=== PATIENT | female | born 1980 | race Caucasian/White ===

== ENCOUNTER 2021-05-07 12:11 | Emergency (ER) | payer OTHER, SELFPAY ==
--- NOTE | ~2021-05-07 | CT_ITS ---
EXAMINATION: CT ABDOMEN AND PELVIS WITHOUT CONTRAST CLINICAL INFORMATION: pelvic pain . COMPARISON: No pertinent prior studies are available for comparison. TECHNIQUE: Multidetector volumetric imaging was performed from the superior aspect of the liver through the pubic symphysis without contrast per renal stone protocol. Sagittal and coronal reformatted images were obtained on the technologist workstation. This CT examination was performed using dose optimization techniques as appropriate, variously including the following: *Automated exposure control *Adjustment of mA and/or kV according to patient size (this includes techniques or standardized protocols for targeted exams where dose is matched to indication/reason for exam; i.e. extremities or head) *Use of iterative reconstruction technique DLP: 519 mGy-cm. FINDINGS: LUNG BASES: The visualized lung bases are unremarkable. LIVER, GALLBLADDER, BILIARY TREE: The non-contrast liver is normal in size, shape, and attenuation. There is subtle low-attenuation cyst in segment 4 the liver abutting the falciform ligament but otherwise no suspicious focal hepatic lesion or biliary ductal dilatation is present. The gallbladder surgically absent. PANCREAS: Unremarkable. SPLEEN: Unremarkable. ADRENAL GLANDS: Unremarkable. KIDNEYS AND URETERS: There are several small punctate intrarenal calculi in the bilateral kidneys right more so than left. No obstructive changes. No hydronephrosis or perinephric stranding. No ureteric calculi seen. Subtle low-attenuation probable cyst in the posterior midpole of the right kidney BLADDER: Unremarkable. GASTROINTESTINAL TRACT: The small and large bowel are unremarkable. The appendix is unremarkable. ABDOMINAL WALL: No significant hernia is appreciated. LYMPHOVASCULAR STRUCTURES: No lymphadenopathy. The aorta is unremarkable.. PELVIC VISCERA: Anteroverted uterus with IUD OSSEUS STRUCTURES: Unremarkable. CT/CT abdomen pelvis wo con IMPRESSION: No acute intra-abdominal process seen. There are nonobstructing tiny intrarenal calculi incidentally noted..
[2021-05-07 13:11] VITALS: BP 107/71; PULSE 72; RESP 18; TEMP 36.8; O2SAT 98; BMI 30.8
[2021-05-07 13:39] LABS: MANUAL DIFF FLAG NO
[2021-05-07 13:42] LABS: Basophils Percent Auto 0.4 % (0-2); Eosinophils Percent Auto 0.2 % (0-4); Hematocrit 38.6 % (37-47); Hemoglobin 13.2 g/dl (12.0-16.0); Imm Gran Abs Auto 0.01 X10*3/uL (0.00-0.03); Imm Gran Pct Auto 0.2 % (0.0-0.4); Lymphocytes Percent Auto 18.4 % (20-40); Mean Corpuscular HGB Conc 34.2 g/dl (31.0-35.0); Mean Corpuscular Hemoglobin 29.2 pg (27.0-33.0); Mean Corpuscular Volume 85.4 fL (80-98); Mean Platelet Volume 9.6 fL (9.4-12.3); Monocytes Absolute Auto 0.4 X10*3/uL (0.1-1.2); Monocytes Percent Auto 8.1 % (2-11); Neutrophils Absolute Auto 3.8 X10*3/uL (2.0-8.3); Neutrophils Percent Auto 72.7 % (45-73); Platelet Count 284 X10*3/uL (160-400); Red Blood Count 4.52 X10*6/uL (4.20-5.50); Red Cell Distribution Width 13.2 % (11.0-16.0); White Blood Count 5.2 X10*3/uL (4.8-10.8)
[2021-05-07 13:56] LABS: Alanine Aminotransferase 20 U/L (0-31); Albumin Level 4.1 g/dL (3.5-5.0); Alkaline Phosphatase 62 U/L (39-117); Anion Gap 12 (12-20); Aspartate Amino Transferase 18 U/L (5-31); Bilirubin Total 0.5 mg/dL (0.0-1.0); Blood Urea Nitrogen 4 mg/dL (9-16); Calcium 8.8 mg/dL (8.4-10.2); Carbon Dioxide 24 mmol/L (22-29); Chloride 111 mmol/L (96-108); Creatinine Clr Calc Pharmacy 124.8; Estimated Glomerular Filt Rate > 60; Glucose Random 98 mg/dL (60-115); Potassium 3.8 mmol/L (3.3-5.1); Sodium 143 mmol/L (135-145); Total Protein 5.9 g/dL (6.5-8.0)
[2021-05-07 14:01] LABS: Appearance Urine HAZY; Color Urine YELLOW; Glucose Urine UA NEG (NEG); Leukocyte Esterase Urine NEG (NEG); Nitrite Urine NEG (NEG); PH 6.5 (5.0-8.0); Specific Gravity - Urine 1.025 (1.005-1.025); UACC Culture Trigger NO; Urine Blood 3+ (NEG); Urine Ketones >=80 MG/DL (NEG); Urine Protein NEG (NEG-TRACE)
[2021-05-07 14:11] LABS: Bacteria Urine 2+ /LPF; Squamous Epithelial Cell Urine 2+ /LPF
[2021-05-07 14:12] LABS: WBC Urine 0-2 /HPF (0-4)
[2021-05-07 14:13] LABS: Mucus Urine 1+ /LPF
[2021-05-07 16:30] VITALS: BP 115/69; PULSE 60; RESP 17; TEMP 36.7; O2SAT 100
--- NOTE | 2021-05-07 16:34 | PC.NURSE ---
patient a&ox3, vss, pt c/o 04/12 lower abd/pevic pain, pt awaiting provider, will continue to monitor.
--- NOTE | 2021-05-07 16:45 | ED.GENADULT ---
HPI - General Adult General Chief complaint: Vaginal Bleeding Stated complaint: abd pain, vaginal bleeding Time Seen by Provider: 05/07/21 16:35 Source: patient Mode of arrival: ambulatory Limitations: no limitations History of Present Illness HPI narrative: 40-year-old female came in for evaluation of vaginal bleed. 40-year-old female who is status post tubal ligation and IUD in 2012, patient did not have menstruation since 2012, started to have vaginal bleed with pelvic pain started today patient was told her IUD was misplaced patient is concerned of IUD complications Patient declined any fever, chills, nausea, vomiting. Patient stated that her vaginal bleeding is light used 1 pad all day today. Related Data Allergies Allergy/AdvReac Type Severity Reaction Status Date / Time No Known Allergies Allergy Verified 05/07/21 13:11 Review of Systems Review of Systems: All other systems are reviewed and are negative Constitutional: Reports as per HPI and Reports no additional constitutional complaints Eyes: Reports as per HPI and Reports no additional eye complaints Reports system reviewed and no additional complaints, except as documented Cardiovascular: Reports as per HPI and Reports no additional cardiovascular complaints Respiratory: Reports as per HPI and Reports no additional respiratory complaints Gastrointestinal: Reports as per HPI and Reports no additional gastrointestinal complaints Genitourinary: Reports no additional female genitourinary complaints Musculoskeletal: Reports no additional musculoskeletal complaints Skin/Breast: Reports system reviewed and no additional complaints, except as docu Psychiatric: Reports no additional psychiatric complaints Endocrine: Reports no additional endocrine complaints Hematologic/Lymphatic: Reports no additional hematologic/lymphatic complaints Allergic/Immunologic: Reports no additional allergic/immunologic complaints Reports system reviewed and no additional complaints, except as documented and Reports Abnormal speech present [facility] Past Medical History Medical History Graves disease Multiple sclerosis Thyroid activity decreased Social History Social History Alcohol intake: never Patient Tobacco Use Status: Current everyday Tobacco user Use of substances other than those prescribed or required for medical reasons: Yes Substance Use Type: Marijuana Substance Use Frequency: Daily Advance Directives: No Advance Directives Information Provided: No Patient : No Physical Exam Vital Signs: Vital Signs: Last Vital Signs Temp 98.2 F 05/07/21 18:00 Pulse 72 05/07/21 18:00 Resp 16 05/07/21 18:00 BP 113/74 05/07/21 18:00 Pulse Ox 97 05/07/21 18:00 Body Mass Index 30.8 Vital signs have been reviewed as appeared to be correct. Blood pressure normal. Heart rate normal. Respiration rate normal. Temperature normal. Oxygen saturation normal. Appearance: Alert. Oriented X3. No acute distress. Head: Normal external exam. Normocephalic. Atraumatic. No Thurman signs noted. No raccoon eyes noted Eyes: PERRLA. EOMI. Conjunctiva and sclera normal. Eyelids normal. ENT: TM's Normal. Pharynx normal. Uvula midline. Moist mucous membranes. No trismus noted. No drooling noted. No muffled voice noted. Neck: Normal inspection. Neck supple. FROM. No adenopathy. Thyroid Normal. No meningeal signs. No neck mass noted. CVS: Normal heart rate and rhythm. Heart sound normal. No murmurs noted. Pulses normal throughout. Respiratory: No respiratory distress. Painless inspiration. Breath sounds normal. No wheezes/rales/rhonchi noted. Chest nontender. No accessory muscle usage noted or decreased air movement noted. Abdomen: Soft and nontender. Bowel sounds normal in all 4 quadrants. No distention noted. No organomegaly noted. No visible injury noted. Pelvic exam: Small amount of blood and old, no active bleeding, otherwise inspection, no CMT, no tender adnexa, IUD thread is visible and as per patient request was removed. Back: No CVA tenderness. Full range of motion noted. Skin: Skin warm and dry. Normal skin color. Normal skin turgor. No rashes/lesions/lacerations noted. Extremities: No lower extremity edema. Extremities exhibit normal range of motion. Extremities nontender. Neuro: Oriented X 3. Cranial nerve exam: II-XII are grossly intact No motor deficit. No sensory deficit. Reflexes normal. Course Course Course Narrative: Assessment and plan. 40-year-old female came in for evaluation of pelvic pain, patient has soot secondary to IUD, IUD was removed on the physical exam today, repeat abdominal exam showed no tenderness or rebound or guarding. Patient's pain improved with ibuprofen, patient never had a history of STD, testing for STD were sent. CT of the abdomen pelvis showed no acute intra abdominal process. Medical Decision Making Lab Data Lab results reviewed: Yes I reviewed the patient's lab results. Result diagrams: 05/07/21 13:33 05/07/21 13:33 Labs: Lab Results 05/07/21 05/07/21 05/07/21 Range/Units 13:31 13:31 13:33 WBC 5.2 (4.8-10.8) X10*3/uL RBC 4.52 (4.20-5.50) X10*6/uL Hgb 13.2 (12.0-16.0) g/dl Hct 38.6 (37-47) % MCV 85.4 (80-98) fL MCH 29.2 (27.0-33.0) pg MCHC 34.2 (31.0-35.0) g/dl RDW 13.2 (11.0-16.0) % Plt Count 284 (160-400) X10*3/uL MPV 9.6 (9.4-12.3) fL Immature Gran % (Auto) 0.2 (0.0-0.4) % Neut % (Auto) 72.7 (45-73) % Lymph % (Auto) 18.4 L (20-40) % [place] % (Auto) 8.1 (2-11) % Eos % (Auto) 0.2 (0-4) % Baso % (Auto) 0.4 (0-2) % Lymph # (Auto) 1.0 L (1.2-4.9) X10*3/uL [place] # (Auto) 0.4 (0.1-1.2) X10*3/uL Eos # (Auto) 0.0 (0.0-0.4) X10*3/uL Baso # (Auto) 0.0 (0.0-0.2) X10*3/uL Abs Immat Gran (auto) 0.01 (0.00-0.03) X10*3/uL Absolute Neuts (auto) 3.8 (2.0-8.3) X10*3/uL Absolute Nucleated RBC 0.000 (0.0-0.012) X10*3/uL Nucleated RBC % (auto) 0.0 (0.0-0.2) /100WBC Sodium (135-145) mmol/L Potassium (3.3-5.1) mmol/L Chloride (96-108) mmol/L Carbon Dioxide (22-29) mmol/L Anion Gap (12-20) BUN (9-16) mg/dL Creatinine (0.5-1.4) mg/dL Estim Creat Clear Calc Estimated GFR Random Glucose (60-115) mg/dL Calcium (8.4-10.2) mg/dL Total Bilirubin (0.0-1.0) mg/dL AST (5-31) U/L ALT (0-31) U/L Alkaline Phosphatase (39-117) U/L Total Protein (6.5-8.0) g/dL Albumin (3.5-5.0) g/dL Urine Color YELLOW Urine Appearance HAZY Urine pH 6.5 (5.0-8.0) Ur Specific [place] 1.025 (1.005-1.025) Urine Protein NEG (NEG-TRACE) MG/DL Urine Glucose (UA) NEG (NEG) MG/DL Urine Ketones >=80 (NEG) MG/DL Urine Blood 3+ H (NEG) Urine Nitrite NEG (NEG) Ur Leukocyte Esterase NEG (NEG) Urine RBC 1-4 (0) /HPF Urine WBC 0-2 (0-4) /HPF Ur Squamous Epith Cells 2+ /LPF Urine Bacteria 2+ /LPF Urine Mucus 1+ /LPF Urine Test NEGATIVE (NEGATIVE) 05/07/21 Range/Units 13:33 WBC (4.8-10.8) X10*3/uL RBC (4.20-5.50) X10*6/uL Hgb (12.0-16.0) g/dl Hct (37-47) % MCV (80-98) fL MCH (27.0-33.0) pg MCHC (31.0-35.0) g/dl RDW (11.0-16.0) % Plt Count (160-400) X10*3/uL MPV (9.4-12.3) fL Immature Gran % (Auto) (0.0-0.4) % Neut % (Auto) (45-73) % Lymph % (Auto) (20-40) % [place] % (Auto) (2-11) % Eos % (Auto) (0-4) % Baso % (Auto) (0-2) % Lymph # (Auto) (1.2-4.9) X10*3/uL [place] # (Auto) (0.1-1.2) X10*3/uL Eos # (Auto) (0.0-0.4) X10*3/uL Baso # (Auto) (0.0-0.2) X10*3/uL Abs Immat Gran (auto) (0.00-0.03) X10*3/uL Absolute Neuts (auto) (2.0-8.3) X10*3/uL Absolute Nucleated RBC (0.0-0.012) X10*3/uL Nucleated RBC % (auto) (0.0-0.2) /100WBC Sodium 143 (135-145) mmol/L Potassium 3.8 (3.3-5.1) mmol/L Chloride 111 H (96-108) mmol/L Carbon Dioxide 24 (22-29) mmol/L Anion Gap 12 (12-20) BUN 4 L (9-16) mg/dL Creatinine 0.59 (0.5-1.4) mg/dL Estim Creat Clear Calc 124.8 Estimated GFR > 60 Random Glucose 98 (60-115) mg/dL Calcium 8.8 (8.4-10.2) mg/dL Total Bilirubin 0.5 (0.0-1.0) mg/dL AST 18 (5-31) U/L ALT 20 (0-31) U/L Alkaline Phosphatase 62 (39-117) U/L Total Protein 5.9 L (6.5-8.0) g/dL Albumin 4.1 (3.5-5.0) g/dL Urine Color Urine Appearance Urine pH (5.0-8.0) Ur Specific [place] (1.005-1.025) Urine Protein (NEG-TRACE) MG/DL Urine Glucose (UA) (NEG) MG/DL Urine Ketones (NEG) MG/DL Urine Blood (NEG) Urine Nitrite (NEG) Ur Leukocyte Esterase (NEG) Urine RBC (0) /HPF Urine WBC (0-4) /HPF Ur Squamous Epith Cells /LPF Urine Bacteria /LPF Urine Mucus /LPF Urine Test (NEGATIVE) Imaging Data CT scan - abdomen: Radiologist's impression: No acute intra-abdominal process seen. There are nonobstructing tiny intrarenal calculi incidentally noted.. ? Discharge Plan Discharge Clinical Impression: Pelvic pain, Encounter for IUD removal Patient Disposition: Home, Self-Care Instructions: Pelvic Pain (ED) Referrals: Mickey Oscar MD [Primary Care Provider] - 2 days Cassandra Latham MD [Physician] - 2 days
[2021-05-07 16:47] LABS: UPreg QC Valid YES; Urine Pregnancy NEGATIVE (NEGATIVE)
--- NOTE | 2021-05-07 17:03 | PC.NURSE ---
patient awaiting ct scan
[2021-05-07 18:00] VITALS: BP 113/74; PULSE 72; RESP 16; TEMP 36.8; O2SAT 97
--- NOTE | 2021-05-07 18:01 | PC.NURSE ---
patient c/o 9/10 lower abd pain, provider notified, will continue to monitor.
--- NOTE | 2021-05-07 18:51 | PC.NURSE ---
THIS PCT SET UP AND ASSIST DR CARROLL WITH PATIENT PELVIC EXAM
[2021-05-07] MEDS: Ibuprofen 600 MG TABLET PO (19:02)
[2021-05-08 09:53] LABS: BV Int Neg Control Negative (Negative); BV Int Pos Control Positive (Positive)
[2021-05-08 11:02] LABS: CT PCR NOT DETECTED (Not Detect.); NG PCR NOT DETECTED (Not Detect.)
== END 2021-05-07 19:10 | disposition home or self-care (01) ==
PROVIDERS: Emergency Provider Emergency Medicine; PCP Internal Medicine
DX: R10.9 Unspecified abdominal pain (principal); N93.9 Abnormal uterine and vaginal bleeding, unspecified; F17.200 Nicotine dependence, unspecified, uncomplicated; F12.90 Cannabis use, unspecified, uncomplicated; Z20.2 Contact with and (suspected) exposure to infections with a predominantly sexual mode of transmission; Z30.432 Encounter for removal of intrauterine contraceptive device; Z71.6 Tobacco abuse counseling
CPT/HCPCS: 36415; 58301; 74176; 80053; 81001; 81003; 81025; 85025; 87480; 87491; 87510; 87591; 87660; 99284

== ENCOUNTER 2021-06-07 11:08 | Outpatient (REF) | payer OTHER, SELFPAY ==
[2021-06-08 13:35] LABS: CT PCR NOT DETECTED (Not Detect.); NG PCR NOT DETECTED (Not Detect.)
[2021-06-09 10:51] LABS: BV Int Neg Control Negative (Negative); BV Int Pos Control Positive (Positive)
[2021-06-13 06:41] LABS: HPV mRNA E6/E7 rflx Not Detected (Not Detected)
== END 2021-06-07 11:09 | disposition home or self-care (01) ==
LOC: HO.LAB 11:08
PROVIDERS: PCP Internal Medicine; Visit Provider Advanced Practice Midwife
DX: Z01.419 Encounter for gynecological examination (general) (routine) without abnormal findings (principal); G35 Multiple sclerosis; Z20.2 Contact with and (suspected) exposure to infections with a predominantly sexual mode of transmission
CPT/HCPCS: 87480; 87491; 87510; 87591; 87624; 87660; 88142

== ENCOUNTER 2021-09-05 08:31 | Outpatient (REF) | payer OTHER, SELFPAY ==
[2021-09-05 09:48] LABS: Hematocrit 39.6 % (37.0-47.0); Hemoglobin 13.1 g/dl (12.0-16.0); Mean Corpuscular HGB Conc 33.1 g/dl (31.0-35.0); Mean Corpuscular Hemoglobin 30.8 pg (27.0-33.0); Mean Platelet Volume 9.3 fL (9.4-12.3); Platelet Count 299 X10*3/uL (160-400); Red Blood Count 4.26 X10*6/uL (4.20-5.50); Red Cell Distribution Width 13.8 % (11.0-16.0); White Blood Count 6.4 X10*3/uL (4.8-10.8)
[2021-09-05 10:36] LABS: HCG Quantitative < 2 mIU/mL; TSH reflex Free T4 0.34 uIU/mL (0.32-4.0)
== END 2021-09-05 08:32 | disposition home or self-care (01) ==
LOC: HO.LAB 08:31
PROVIDERS: PCP Internal Medicine; Visit Provider Obstetrics & Gynecology
DX: N93.9 Abnormal uterine and vaginal bleeding, unspecified (principal)
CPT/HCPCS: 36415; 84443; 84702; 85027; 99212

== ENCOUNTER 2021-09-25 08:52 | Outpatient (REF) | payer OTHER, SELFPAY ==
[2021-09-25 15:35] LABS: CT PCR NOT DETECTED (Not Detect.); NG PCR NOT DETECTED (Not Detect.)
== END 2021-09-25 08:53 | disposition home or self-care (01) ==
LOC: HO.LAB 08:52
PROVIDERS: PCP Internal Medicine; Visit Provider Obstetrics & Gynecology
DX: N93.9 Abnormal uterine and vaginal bleeding, unspecified (principal)
CPT/HCPCS: 58100; 87491; 87591; 88305; 99212

== ENCOUNTER → 2021-10-14 11:35 | Outpatient (BNVA) | payer OTHER, SELFPAY | PROVIDERS: Visit Provider Obstetrics & Gynecology | DX: N93.9 Abnormal uterine and vaginal bleeding, unspecified (principal) | CPT/HCPCS: Q3014 ==

== ENCOUNTER 2021-10-30 11:05 | Outpatient (REF) | payer OTHER, SELFPAY ==
--- NOTE | ~2021-10-30 | US_ITS ---
EXAMINATION: US PELVIS CLINICAL INFORMATION: Abnormal uterine and vaginal bleeding. IUD removed 05/2021. COMPARISON: None TECHNIQUE: Ultrasound of the pelvis is performed using both transabdominal and transvaginal transducers along with Doppler. Transvaginal imaging is performed due to inadequate visualization transabdominally. FINDINGS: UTERUS: The uterus is anteverted, anteflexed and measures 7.8 cm in length, 3.6 cm in AP and 4.2 cm in transverse dimension. The double wall endometrial thickness is 0.3 cm. The uterus is smooth in contour and has normal myometrial echogenicity. No visible fibroid. There are small nabothian cysts seen in the cervix. ADNEXA: Both ovaries are visualized. There is normal color flow to the adnexa. There is no ovarian torsion. There is no pelvic ascites or fluid collection. Right Ovary: Measures 2.4 x 1.5 x 1.8 cm and volume 4.0 mL. The ovary appears unremarkable. Left Ovary: Measures 2.4 x 1.5 x 1.8 cm and volume 3.4 mL. The ovary appears unremarkable. There is no free fluid in the cul-de-sac. There are prominent/dilated pelvic vessels in both adnexa. US/US pelvic and transvaginal IMPRESSION: Unremarkable uterus. Unremarkable bilateral ovaries. Mild prominent/dilated pelvic vessels in bilateral adnexa.
== END 2021-10-30 11:06 | disposition home or self-care (01) ==
LOC: HO.US 11:05
PROVIDERS: Visit Provider Obstetrics & Gynecology
DX: N93.9 Abnormal uterine and vaginal bleeding, unspecified (principal)
CPT/HCPCS: 76830; 76856

== ENCOUNTER 2022-04-02 14:09 | Outpatient (REF) | payer OTHER, SELFPAY ==
[2022-04-02 15:20] LABS: HCG Quantitative < 2 mIU/mL
== END 2022-04-02 14:10 | disposition home or self-care (01) ==
LOC: HO.LAB 14:09
PROVIDERS: PCP Internal Medicine; Visit Provider Obstetrics & Gynecology
DX: N91.2 Amenorrhea, unspecified (principal)
CPT/HCPCS: 36415; 84702

== ENCOUNTER 2022-04-08 10:50 | Outpatient (REF) | payer OTHER, SELFPAY ==
[2022-04-08 18:15] LABS: CT PCR NOT DETECTED (Not Detect.); NG PCR NOT DETECTED (Not Detect.)
== END 2022-04-08 10:51 | disposition home or self-care (01) ==
LOC: HO.LNP 10:50
PROVIDERS: PCP Internal Medicine; Visit Provider Obstetrics & Gynecology
DX: N93.9 Abnormal uterine and vaginal bleeding, unspecified (principal); Z32.02 Encounter for pregnancy test, result negative; Z30.430 Encounter for insertion of intrauterine contraceptive device
CPT/HCPCS: 58300; 81025; 87491; 87591; 99212; J7298

== ENCOUNTER 2022-04-29 08:36 | Outpatient (REF) | payer OTHER, SELFPAY ==
[2022-04-29 18:41] LABS: CT PCR NOT DETECTED (Not Detect.); NG PCR NOT DETECTED (Not Detect.)
[2022-04-30 10:13] LABS: BV Int Neg Control Negative (Negative); BV Int Pos Control Positive (Positive)
== END 2022-04-29 08:37 | disposition home or self-care (01) ==
LOC: HO.LNP 08:36
PROVIDERS: Visit Provider Obstetrics & Gynecology
DX: Z30.431 Encounter for routine checking of intrauterine contraceptive device (principal); N89.8 Other specified noninflammatory disorders of vagina; B37.3 Candidiasis of vulva and vagina
CPT/HCPCS: 87480; 87491; 87510; 87591; 87660; 99212

== ENCOUNTER 2022-04-30 13:36 | Outpatient (REF) | payer OTHER, SELFPAY ==
[2022-04-30 15:28] LABS: Syphilis Screen Nonreactive (Nonreactive)
[2022-05-01 07:16] LABS: HBsAGNum1 0.31 S/CO (0.00-0.99); HIV AB/AG Nonreactive (Nonreactive); HIV Num 1 0.07 S/CO (0.00-0.99); Hepatitis B Surface Antigen Negative (Negative); ~HepC Num1 0.03 S/CO (0.00-0.79); ~Hepatitis C Antibody Nonreactive (Nonreactive)
== END 2022-04-30 13:37 | disposition home or self-care (01) ==
LOC: HO.LAB 13:36
PROVIDERS: PCP Internal Medicine; Visit Provider Obstetrics & Gynecology
DX: Z11.4 Encounter for screening for human immunodeficiency virus [HIV] (principal); N76.0 Acute vaginitis; B96.89 Other specified bacterial agents as the cause of diseases classified elsewhere
CPT/HCPCS: 36415; 86780; 86803; 87340; 87389

== ENCOUNTER 2022-09-03 09:45 | Outpatient (REF) | payer OTHER, SELFPAY ==
[2022-09-03 16:43] LABS: CT PCR NOT DETECTED (Not Detect.); NG PCR NOT DETECTED (Not Detect.)
[2022-09-04 12:42] LABS: BV Int Neg Control Negative (Negative); BV Int Pos Control Positive (Positive)
[2022-09-06 07:33] LABS: HPV mRNA E6/E7 rflx Not Detected (Not Detected)
== END 2022-09-03 09:46 | disposition home or self-care (01) ==
LOC: HO.LNP 09:45
PROVIDERS: PCP Internal Medicine; Visit Provider Obstetrics & Gynecology
DX: Z01.419 Encounter for gynecological examination (general) (routine) without abnormal findings (principal); N76.0 Acute vaginitis; Z20.2 Contact with and (suspected) exposure to infections with a predominantly sexual mode of transmission
CPT/HCPCS: 0353U; 87480; 87510; 87624; 87660; 88142

== ENCOUNTER 2022-10-23 11:39 | Outpatient (REF) | payer OTHER, SELFPAY ==
--- NOTE | ~2022-10-23 | MM_ITS ---
EXAMINATION: MM SCREENING DIGITAL BREAST TOMOSYNTHESIS, BILATERAL CLINICAL INFORMATION: Screening. Asymptomatic. The lifetime risk of breast cancer based on the Tyrer-Cuzick Model is 7.8%. COMPARISON: Mammography: February 19, 2022 and studies dating back to September 30, 2019 TECHNIQUE: Digital breast tomosynthesis is performed in both the craniocaudal and mediolateral oblique views along with computer-aided detection (CAD). Synthesized 2D images are generated from the tomosynthesis. FINDINGS: The breasts are heterogeneously dense, which may obscure small masses (ACR BI-RADS breast composition Category c). There are no significant masses, abnormal calcifications, or other abnormalities. MM/MM tomosynthesis screening BI IMPRESSION: No significant changes from prior exam. ASSESSMENT: BI-RADS 1: Negative RECOMMENDATION: Routine annual mammography screening. This patient's information was entered into a reminder system with a target due date for their next mammogram.
== END 2022-10-23 11:40 | disposition home or self-care (01) ==
LOC: HO.MAMMO 11:39
PROVIDERS: PCP Internal Medicine; Visit Provider Obstetrics & Gynecology
DX: Z12.31 Encounter for screening mammogram for malignant neoplasm of breast (principal)
CPT/HCPCS: 77063; 77067

== ENCOUNTER 2023-08-12 10:55 | Outpatient (AMB) | payer OTHER, SELFPAY ==
[2023-08-12 10:56] VITALS: BP 110/70; BMI 25.2
--- NOTE | 2023-08-12 10:56 | MHC.OFFVIS ---
Intake Vital Signs 08/12/23 10:56 Height 5 ft 3 in Weight 142 lb BMI 25.2 BP 110/70 Intake Visit Reasons: IUD Check Retail Loss Prevention Investigator Required: No Information Interpreted: non-clinical & clinical Pattern Chart Writer: Pattern Chart Writer Present (Norma HANNON) Accompanied by: Self / Same As Patient Allergies No Known Allergies Allergy (Verified 08/12/23 11:04) Is last menstrual period known: No (mirena) HPI HPI Comments History of Present Illness Details The patient is presenting for IUD check after 1 st period following IUD insertion. The patient has no complaints. [facility] Medical History Bacterial vaginosis LGSIL on Pap smear of cervix Carpal tunnel syndrome GERD (gastroesophageal reflux disease) Cervical cancer screening Asthma delivery delivered Multiple sclerosis Graves disease Thyroid activity decreased Surgical History Tubal ligation status Hx of section Family History Mother Diabetes Arthritis Fibromyalgia Father HTN (hypertension) Asthma Sister Multiple sclerosis Social History Housing: House Alcohol intake: never Patient Tobacco Use Status: Current everyday Tobacco user Cigarettes Per Day: 10 Years Smoked: 7 Substance Use Type: Marijuana Current occupational status: disabled Sexual orientation: Straight/Heterosexual Gender identity: Female Female Reproductive History Menstrual Age of Menarche: 13 control method: progestin IUCD Review of Systems Const All systems reviewed & are unremarkable except as noted in HPI and below Physical Exam Vital Signs: Last Vital Signs BP 110/70 08/12/23 10:56 BMI result Body Mass Index 25.2 General: Yes no CVA tenderness External Female Exam: normal external appearance and normal appearance of the urethra Speculum Exam - Vagina: normal appearance of the vagina, normal palpation, no lesions and no masses Speculum Exam - Cervix: normal appearance of the cervix, normal palpation, no lesions, no masses, nontender and Other cervical findings present (IUD string in place) Bimanual exam- vagina & uterus: normal bimanual exam, normal palpation, uterine size normal, normal palpation, uterine shape normal, No Cervical tenderness present and non-tender Bimanual Exam- Adnexa, other: normal adnexae Back/Spine/Pelvis Back: no CVA tenderness Results AMB Test Urine AMB Test Urine Negative Last Edit by Norma Limon CMA on 08/12/23 11:08 Results Reviewed Results Reviewed: Laboratory Last Values Tst Clinic Negative 08/12/23 11:08 Assessment & Plan Assessment & Plan (1) IUD check up: Code(s): Z30.431 - Encounter for routine checking of intrauterine contraceptive device Plan: UPT done in the office was negative. Discussed with the patient the finding on physical exam, IUD string in place, the patient was reassured. Instructions given to patient to call in case of temperature above 100.4, severe cramping/pelvic pain, abnormal discharge or abnormal uterine bleeding or if she misses her. Otherwise follow-up at her annual exam appointment. All questions answered, the patient verbalized understanding. Orders: Orders AMB HCG Urine Test Today Z32.02 - Encounter for test, result negative Coding Level of Care Code Est Pt Level 3 (68836) Diagnoses IUD check up Z30.431
== END 2023-08-12 11:44 | disposition home or self-care (01) ==
LOC: HO.HWS 10:55
PROVIDERS: PCP Internal Medicine; Visit Provider Obstetrics & Gynecology
DX: Z30.431 Encounter for routine checking of intrauterine contraceptive device (principal); Z32.02 Encounter for pregnancy test, result negative
CPT/HCPCS: 99213

== ENCOUNTER → 2023-08-12 10:55 | Outpatient (BNVA) | payer OTHER, SELFPAY | PROVIDERS: PCP Internal Medicine; Visit Provider Obstetrics & Gynecology | DX: Z30.431 Encounter for routine checking of intrauterine contraceptive device (principal) | CPT/HCPCS: 81025; 99212 ==

== ENCOUNTER 2023-08-27 13:50 | Outpatient (REF) | payer OTHER, SELFPAY ==
--- NOTE | ~2023-08-27 | US_ITS ---
EXAMINATION: MM DIAGNOSTIC DIGITAL BREAST TOMOSYNTHESIS, BILATERAL US BREAST LIMITED, BILATERAL MAMMOGRAPHY: CLINICAL INFORMATION: 43-year-old female complaining of bilateral retroareolar and periareolar pain. COMPARISON: Mammography: 10/23/2022, 08/23/2021, 09/30/2019. TECHNIQUE: Digital breast tomosynthesis is performed in both the craniocaudal and mediolateral oblique views along with computer-aided detection (CAD). Synthesized 2D images are generated from the tomosynthesis. FINDINGS: The breasts are heterogeneously dense, which may obscure small masses (ACR BI-RADS breast composition Category c). There are no suspicious masses, suspicious grouped calcifications, or areas of architectural distortion in either breast. There is no retroareolar or periareolar suspicious abnormality. The parenchymal pattern is stable from prior exams. There are no skin or axillary abnormalities. There is no mammographic abnormality to correlate with the retroareolar breast pain bilaterally. ULTRASOUND: CLINICAL INFORMATION: As above. COMPARISON: 02/19/2022 bilateral ultrasound TECHNIQUE: Targeted sonographic evaluation was performed using a high frequency linear transducer. Examination focused on both breasts in the retroareolar regions. Selected archived documentation. FINDINGS: RIGHT BREAST: There is heterogeneously dense retroareolar tissue. No suspicious mass is seen. There is no pathologic acoustic shadowing. There is no cystic abnormality. No ultrasonographic correlate to the region of retroareolar breast pain. LEFT BREAST: There is heterogeneously dense retroareolar tissue. No suspicious mass is seen. There is no pathologic acoustic shadowing. There is no cystic abnormality. No ultrasonographic correlate to the region of retroareolar breast pain. US/US breast BI limited mamm only IMPRESSION: There are no significant changes from prior study. No findings suspicious for malignancy. No imaging abnormality in the bilateral retroareolar regions to explain bilateral retroareolar breast pain. Recommend clinical management. Otherwise, recommend resuming routine annual screening mammography. OVERALL ASSESSMENT: Mammography: BI-RADS 1 - Negative Ultrasound: BI-RADS 1 - Negative RECOMMENDATION: 1. Patient should be managed based on the clinical impression. 2. Otherwise, routine annual screening mammography. Results were provided to the patient at time of visit by the technologist. This patient's information was entered into a reminder system with a target due date for their next mammogram.
== END 2023-08-27 13:51 | disposition home or self-care (01) ==
LOC: HO.MAMMO 13:50
PROVIDERS: PCP Internal Medicine; Visit Provider Physician Assistant Medical
DX: N64.4 Mastodynia (principal)
CPT/HCPCS: 76642; 77062; 77066

== ENCOUNTER → 2023-08-27 14:00 | Outpatient (BNV) | payer OTHER, SELFPAY | PROVIDERS: PCP Internal Medicine; Visit Provider Radiology Diagnostic Radiology | DX: N64.4 Mastodynia (principal) | CPT/HCPCS: 76642; 77062; 77066 ==

== ENCOUNTER 2023-09-09 09:45 | Outpatient (REF) | payer OTHER, SELFPAY ==
[2023-09-14 20:09] LABS: HPV mRNA E6/E7 rflx Not Detected (Not Detected)
== END 2023-09-09 09:46 | disposition home or self-care (01) ==
LOC: HO.LNP 09:45
PROVIDERS: PCP Internal Medicine; Visit Provider Obstetrics & Gynecology
DX: Z01.419 Encounter for gynecological examination (general) (routine) without abnormal findings (principal); Z11.51 Encounter for screening for human papillomavirus (HPV)
CPT/HCPCS: 87624; 88142

== ENCOUNTER 2023-09-09 09:45 | Outpatient (AMB) | payer OTHER, SELFPAY ==
--- NOTE | 2023-09-09 10:15 | MHC.OFFVIS ---
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 No complaints. Last Pap/HPV was ascus/HPV negative Last Mammogram was BI-RADS 1 in 08/26 [facility] Medical History Bacterial vaginosis LGSIL on Pap smear of cervix Carpal tunnel syndrome GERD (gastroesophageal reflux disease) Cervical cancer screening Asthma delivery delivered Multiple sclerosis Graves disease Thyroid activity decreased Surgical History Tubal ligation status Hx of section Family History Mother Diabetes Arthritis Fibromyalgia Father HTN (hypertension) Asthma Sister Multiple sclerosis Social History (Updated 09/09/23 @ 10:29 by Norma Limon CMA) Housing: House Alcohol intake: never Patient Tobacco Use Status: Former Tobacco user Tobacco use type: Cigarette Cigarettes Per Day: 10 Years Smoked: 7 e-Cigarette/Vaping Use: Currently Using Frequency of e-Cigarette/Vaping Use: vaoing x 4 times per day Substance Use Type: Marijuana Current occupational status: disabled Sexually active: Yes Sexual orientation: Straight/Heterosexual Gender identity: Female Female Reproductive History Menstrual Age of Menarche: 13 Date of last pap smear: 09/03/22 Date of Mammogram: 08/27/22 Review of Systems Const All systems reviewed & are unremarkable except as noted in HPI and below Card Reports as per HPI Resp Reports as per HPI GI Reports as per HPI and Reports no additional complaints Reports as per HPI Physical Exam Vital Signs: BMI result Body Mass Index 24.8 Const General: cooperative, healthy appearing and comfortable Chest Chest palpation & inspection: normal inspection of the chest and normal palpation of entire chest wall Breast/axilla inspection: normal inspection of the breasts and normal inspection of the axillae Breast/axilla palpation: normal palpation of the breasts, normal palpation of the axillae and no axillary lymphadenopathy Resp Effort & Inspection: normal respiratory effort Auscultation: clear to auscultation bilaterally Percussion: percussion normal Cardio Palpation: normal PMI Rate: regular rate Rhythm: regular rhythm Heart sounds: no murmurs and no rubs Peripheral pulses: Peripheral pulses 2+ throughout GI Inspection: Yes normal to inspection Palpation (GI): Soft to palpation, nontender, no guarding, not rigid and No hepatosplenomegaly present Percussion: Yes normal to percussion Auscultation: normal bowel sounds Rectal Exam - Female: deferred General: Yes bladder normal to palpation External Female Exam: No lesion Speculum Exam - Vagina: normal appearance of the vagina, normal palpation, normal vaginal discharge and not erythematous Speculum Exam - Cervix: normal appearance of the cervix and normal palpation Bimanual exam- vagina & uterus: normal bimanual exam, normal palpation, uterine size normal, bladder normal to palpation, consistency normal and normal palpation Bimanual Exam- Adnexa, other: normal adnexae, no masses and no tenderness Assessment & Plan Assessment & Plan (1) Well woman exam: Comment: Ascus/HPV negative in 09/25 Code(s): Z01.419 - Encounter for gynecological examination (general) (routine) without abnormal findings Plan: Cotesting done. Counseled the patient about the recommended dietary allowance of 1000 mg of Calcium & 600 IU of vitamin D. The patient was instructed to perform monthly self-breast exams and to schedule an annual exam in a year; All questions answered and the patient verbalized understanding. Instructed the patient to schedule annual exam in a year Coding Level of Care Code Est Pt Prev Care 40-64y(65954) Diagnoses Well woman exam Z01.419
[2023-09-09 10:24] VITALS: BP 114/62; BMI 24.8
== END 2023-09-09 10:59 | disposition home or self-care (01) ==
LOC: HO.HWS 09:45
PROVIDERS: PCP Internal Medicine; Visit Provider Obstetrics & Gynecology
DX: Z01.419 Encounter for gynecological examination (general) (routine) without abnormal findings (principal)
CPT/HCPCS: 99396

== ENCOUNTER 2024-11-16 14:39 | Outpatient (REF) | payer OTHER, SELFPAY ==
--- OUTSIDE RECORDS SUMMARY | 2024-11-16 18:05 | XMS_ITS | Clinical Summary ---
Author Organization 175 [facility] Address [address] [place] [address] Phone Care Team Providers Care Recycling Crew Supervisor Name Role Phone Mickey Oscar MD Primary Care Provider [phone] Allergies Active Allergy Reactions Criticality Noted Date [...] ulcers 09/29/2023 Pancreas divisum 09/29/2023 Multiple sclerosis ([facility] V24, [facility] V28) Fibromyalgia 01/25/2021 Graves disease 01/25/2021 [...] Description 09/30/2024 8:00 AM EST Office Visit [facility] - [address] [place] [address] Jumana Peterson, NOEL MS (multiple sclerosis) ([facility] V24, [facility] V28) (Primary Dx) 09/30/2024 7:52 AM EST - 09/30/2024 11:59 PM EST Hospital Encounter [facility] Outpatient Rehabilititation [facility] [address] [facility] [address] [place] [address] Multiple sclerosis ([facility] V24, [facility] V28) (Primary Dx); Vitamin D deficiency Discharge Disposition: Home or Self Care 08/25/2024 Telephone [facility] Outpatient [facility] [address] [facility] [address] [place] [address] Jumana Peterson PA OCREVUS AUTH RQST; AUTH RECVD [...] older (Afluria) 3 years and older 05/05/2015 Mtime SARS-CoV-2 COVID-19, mRNA, LNP-S, preservative free 02/11/2021,01/21/2021 Medical History Medical History Date Comments MS (multiple sclerosis) ([facility] V24, [facility] V28) DX:MS (multiple sclerosis) ( [facility]) Adhd DX:ADHD Fibromyalgia DX:Fibromyalgia Overactive thyroid [...] Info) Description 03/30/2025 8:00 AM EDT Appointment [facility] Outpatient Rehabilititation [address] [place] [address] Health Maintenance Due Date Last [...] Routine 09/30/2024 8:18 AM EST Multiple sclerosis ([facility] V24, [facility] V28) CBC AND DIFFERENTIAL Routine 09/30/2024 8:18 AM EST Multiple sclerosis ([facility] V24, [facility] V28) HEPATITIS C SCREENING Routine 06/01/2015 from Last 3 Months or Most Recently Relevant to Health Maintenance Results * (ABNORMAL) CBC auto differential (09/30/2024 8:18 AM EST) WBC 7.2 4.8 - 10.8 K/mcL LAB HEMETOLOGY METHOD 09/30/2024 9:06 AM [facility] RBC 4.30 3.80 - 4.80 M/mcL LAB HEMETOLOGY METHOD 09/30/2024 9:06 AM [facility] Hemoglobin 13.4 11.5 - 16.0 g/dL LAB HEMETOLOGY METHOD 09/30/2024 9:06 AM [facility] Hematocrit 39.2 35.0 - 47.0 % LAB HEMETOLOGY METHOD 09/30/2024 9:06 AM [facility] MCV 91.6 79.0 - 98.0 FL LAB HEMETOLOGY METHOD 09/30/2024 9:06 AM [facility] MCH 31.3 27.0 - 32.0 pcg LAB HEMETOLOGY METHOD 09/30/2024 9:06 AM [facility] MCHC 34.2 32.0 - 37.0 g/dL LAB HEMETOLOGY METHOD 09/30/2024 9:06 AM [facility] RDW 14.6 11.0 - 15.0 % LAB HEMETOLOGY METHOD 09/30/2024 9:06 AM [facility] Platelets 308 130 - 400 K/mcL LAB HEMETOLOGY METHOD 09/30/2024 9:06 AM [facility] MPV 8.9 7.0 - 11.0 FL LAB HEMETOLOGY METHOD 09/30/2024 9:06 AM [facility] NRBC 0.0 <1.0 % LAB HEMETOLOGY METHOD 09/30/2024 9:06 AM [facility] NRBC Absolute 0.00 <0.10 K/mcL LAB HEMETOLOGY METHOD 09/30/2024 9:06 AM [facility] Neutrophils Relative 73.4 % LAB HEMETOLOGY METHOD 09/30/2024 9:06 AM [facility] Lymphocytes Relative 15.5 % LAB HEMETOLOGY METHOD 09/30/2024 9:06 AM [facility] Monocytes Relative 7.7 % LAB HEMETOLOGY METHOD 09/30/2024 9:06 AM [facility] Eosinophils Relative 2.2 % LAB HEMETOLOGY METHOD 09/30/2024 9:06 AM [facility] Basophils Relative 0.6 % LAB HEMETOLOGY METHOD 09/30/2024 9:06 AM [facility] Immature Granulocytes Relative 0.6 % LAB HEMETOLOGY METHOD 09/30/2024 9:06 AM [facility] Neutrophils Absolute 5.31 1.50 - 7.00 K/mcL LAB HEMETOLOGY METHOD 09/30/2024 9:06 AM EST [facility] Lymphocytes Absolute 1.12 1.00 - 5.00 K/mcL LAB HEMETOLOGY METHOD 09/30/2024 9:06 AM EST [facility] Monocytes Absolute 0.56 0.20 - 1.00 K/mcL LAB HEMETOLOGY METHOD 09/30/2024 9:06 AM EST [facility] Eosinophils Absolute 0.16 0.00 - 0.50 K/mcL LAB HEMETOLOGY METHOD 09/30/2024 9:06 AM EST [facility] Basophils Absolute 0.04 0.00 - 0.20 K/mcL LAB HEMETOLOGY METHOD 09/30/2024 9:06 AM [facility] Immature Granulocytes Absolute 0.04(H) 0.00 - 0.03 K/mcL LAB HEMETOLOGY METHOD 09/30/2024 9:06 AM EST [facility] Blood Venous blood specimen / Unknown Venipuncture / Unknown 09/30/2024 8:18 AM EST 09/30/2024 8:19 AM EST Jumana COHEN LAB BLOOD ORDERABLES Final R esult [facility] [address] [place] [address], * Hepatitis C Screening (06/01/2015) Hepatitis C Screening Abstracted us Historical Provider HEALTH MAINTENANCE Final Result from Last 3 Months or Most Recently Relevant to Health Maintenance Insurance [facility] MEDICAID Advance Directives Documents on File Type Date Recorded Patient Beamer Helper Expl anation Health Care Decision (hx) 05/04/2015 [...] (hx) 05/04/2015 AD [place] DIRECTIVE Care Teams Recycling Crew Supervisor Relationship Specialty Start Date End Date Mickey Oscar MD [address] [place] [address] [address] [place], [place] PCP - General 12/25/22
--- OUTSIDE RECORDS SUMMARY | 2024-11-16 18:05 | XMS_ITS | Continuity of Care Document ---
Author Organization [facility] Address [address] [place] [phone] Phone Care Team Providers Care Senior Physical Therapist Name Role Phone Starla Garay M.D., Jennie [...] Mod-hi 60 [facility], [address] [place] [address] [employer] [place], [id number], tel:[phone] [facility] Astigmatism NosPain In Or Around Eye Oct-3 1-200 8 Starla Hill. [address] [place] [address], [id number], [place]. tel:[phone] Specialist : Santy Rausch, [address], [place], [address]. tel:[phone] erring Provider: [facility], [address], [place], [address] . tel:[phone] Family History Family Member Type Diagnosis Age At Onset Mother Problem (finding) diabetes melli tus in first degree relative Father Problem (finding) glaucoma Father Problem (finding) cataract Father Problem (finding) HBP Father Problem (finding) diabetes melli tus in first degree relative Payers Payer name Insurance type Covered green party ID Authoriza tion(s) [facility]ly [facility] [id number] Social History Type Description Quantity Date Captured [...]
--- OUTSIDE RECORDS SUMMARY | 2024-11-16 18:05 | XMS_ITS | Clinical Summary ---
Author Organization [facility] Address [address] [place] [address] Care Team Providers Care Brim Setter Name Role Phone Mickey Oscar MD Primary Care Provider Allergies Active Allergy Reactions Criticality Noted Date [...] age to complete this topic Care Teams Brim Setter Relationship Specialty Start Date End Date Mickey Oscar MD [address] [place] [address] [address] [place] [address] PCP - General Geriatric Medicine 12/25/22
== END 2024-11-16 14:40 | disposition home or self-care (01) ==
LOC: HO.LAB 14:39
PROVIDERS: PCP Internal Medicine; Visit Provider Obstetrics & Gynecology
DX: Z13.89 Encounter for screening for other disorder (principal)
CPT/HCPCS: 99396; 99459

== ENCOUNTER 2024-11-16 14:39 | Outpatient (AMB) | payer OTHER, SELFPAY ==
--- NOTE | 2024-11-16 14:47 | A.OFFVIS_ITS ---
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 No complaints. Last Pap/HPV was in 09/26 was negative Last Mammogram was in 08/26 was BI-RADS 1, screening mammogram is scheduled [facility] tomorrow. No previous screening colonoscopy PFSH Medical History Bacterial vaginosis LGSIL on Pap smear of cervix Carpal tunnel syndrome GERD (gastroesophageal reflux disease) Cervical cancer screening Asthma delivery delivered Multiple sclerosis Graves disease Thyroid activity decreased Surgical History Tubal ligation status Hx of section Family History Mother Diabetes Arthritis Fibromyalgia Father HTN (hypertension) Asthma Sister Multiple sclerosis Social History Housing: House Alcohol intake: never Patient Tobacco Use Status: Former Tobacco user Tobacco use type: Cigarette Cigarettes Per Day: 10 Years Smoked: 7 e-Cigarette/Vaping Use: Currently Using Substance Use Type: Marijuana Current occupational status: disabled Sexual orientation: Straight/Heterosexual Gender identity: Female Female Reproductive History Menstrual Age of Menarche: 13 control method: permanent sterilization Date of last pap smear: 09/11/23 Date of Mammogram: 08/27/23 Review of Systems Const All systems reviewed & are unremarkable except as noted in HPI and below Card Reports as per HPI Resp Reports as per HPI GI Reports as per HPI and Reports no additional complaints Reports as per HPI Physical Exam Vital Signs: Last Vital Signs BP 110/70 11/16/24 14:53 BMI result Body Mass Index 32.4 Const General: cooperative, healthy appearing and comfortable Chest Chest palpation & inspection: normal inspection of the chest and normal palpation of entire chest wall Breast/axilla inspection: normal inspection of the breasts and normal inspection of the axillae Breast/axilla palpation: normal palpation of the breasts, normal palpation of the axillae and no axillary lymphadenopathy Resp Effort & Inspection: normal respiratory effort Auscultation: clear to auscultation bilaterally Percussion: percussion normal Cardio Palpation: normal PMI Rate: regular rate Rhythm: regular rhythm Heart sounds: no murmurs and no rubs Peripheral pulses: Peripheral pulses 2+ throughout GI Inspection: Yes normal to inspection Palpation (GI): Soft to palpation, nontender, no guarding, not rigid and No hepatosplenomegaly present Percussion: Yes normal to percussion Auscultation: normal bowel sounds Rectal Exam - Female: deferred General: Yes bladder normal to palpation External Female Exam: No lesion Speculum Exam - Vagina: normal appearance of the vagina, normal palpation, normal vaginal discharge and not erythematous Speculum Exam - Cervix: normal appearance of the cervix, normal palpation and Other cervical findings present (IUD string in place) Bimanual exam- vagina & uterus: normal bimanual exam, normal palpation, uterine size normal, bladder normal to palpation, consistency normal and normal palpation Bimanual Exam- Adnexa, other: normal adnexae, no masses and no tenderness Assessment & Plan Assessment & Plan (1) Well woman exam: Comment: Ascus/HPV negative in 09/25 09/26 co testing negative Code(s): Z01.419 - Encounter for gynecological examination (general) (routine) without abnormal findings Category: Medical Plan: Cotesting not done. Mammogram scheduled at [facility] tomorrow. GI referral placed for screening colonoscopy Counseled the patient about the recommended dietary allowance of 1000 mg of Calcium & 600 IU of vitamin D. The patient was instructed to perform monthly self-breast exams and to schedule an annual exam in a year; All questions answered and the patient verbalized understanding. Instructed the patient to schedule annual exam in a year Orders: Orders MM tomosynthesis screening BI Today Z12.31 - Encounter for screening mammogram for malignant neoplasm of breast Coding Level of Care Code Est Pt Prev Care 40-64y(53088) Diagnoses Well woman exam Z01.419
[2024-11-16 14:53] VITALS: BP 110/70; BMI 32.4
--- OUTSIDE RECORDS SUMMARY | 2024-11-16 17:23 | XMS_ITS | Continuity of Care Document ---
Author Organization [facility] Address [address] [place] [phone] Phone Care Team Providers Care Hog Operator Name Role Phone Starla Garay M.D., Jennie Hill Unavailable Unava ilable Medications Medication Instructions Dosage Effective Dates (start - stop) Status Comments Provigil 200 mg Tab Take One (1) Tablet by Mouth Daily - Active Duragesic 50 mcg/hr Transderm Patch As directed - Active BETASERON 0.3MGVIAL As directed - Active Procedures Procedure Date Offic Cons New/estab Mod-hi 60 08 Advance Directives Directive Yes / No Effective Date File Name Resuscitation Not Answered N/A N/A Life Support Not Answered N/A N/A Intubation Not Answered N/A N/A Antibiotics Not Answered N/A N/A IV Fluid Support Not Answered N/A N/A Tube Feed Not Answered N/A N/A Other Directive N/A N/A WARNING:The information contained in this section is historical and is provided for information only and does not constitute a legal document or any assurance that the information is still accurate. Please verify the information with the zendejas of the legal document before using it for clinical purposes. Encounters Encounter Description Practice Location Reason(s) For Visit Diagnoses Date Provider Providers Copied on Encounter Offic Cons New/estab Mod-hi 60 [facility] NO[facility], [address] [place] [address] [place], [place], [id number], tel:[phone] [facility] Astigmatism NosPain In Or Around Eye Oct-3 1-200 8 Starla Hill. [address] [place] [address], [id number], [place]. tel:[phone] Specialist : Santy Rausch, [address], [place], [address]. tel:[phone] erring Provider: [facility], [address], [place], [address] . tel:[phone] Family History Family Member Type Diagnosis Age At Onset Mother Problem (finding) diabetes melli tus in first degree relative Father Problem (finding) glaucoma Father Problem (finding) cataract Father Problem (finding) HBP Father Problem (finding) diabetes melli tus in first degree relative Payers Payer name Insurance type Covered green party ID Authoriza tion(s) [facility] [id number] Social History Type Description Quantity Date Captured Comments Alcohol Use Details No Caffeine Use Details Tobacco Use Status No Information Smoking Status No Information Sex Female Chief Complaint And Reason For Visit No Information Reason For Referral Reason For Referral No Information History Of Present Illness Encounter Date Complaint History Of Prese nt Illness No Information Functional Status Date Functional Assessmen t No Information Instructions Date Instruction Additional Infor mation - as needed. Related to Astig matism Astigmatism, OU (mil d) - Recommend that pt use polarizied lenses when using sunglasses which will help cut down glare. do not recommend specs at this time. Related to Astigmatism Pain in or around th e eye, OU (Physiological photophobia) - no eye abnormalilty. Recommend that pt use polarizied lenses when using sunglasses which will help cut down glare. do not recommend specs at this time. Related to Pain in or around the eye Assessments Type Assessment Date No Information Patient Care Teams Name Effective Dates (start - stop) Status Members No Information
--- OUTSIDE RECORDS SUMMARY | 2024-11-16 17:23 | XMS_ITS | Clinical Summary ---
Author Organization [facility] Address [address] [place] [address] Phone Care Team Providers Care Plaster Pattern Caster Name Role Phone Mickey Oscar MD Primary Care Provider [phone] Allergies Active Allergy Reactions Criticality Noted Date Comments Fluconazole Rash Low 05/20/2023 Penicillins Hives 08/13/2022 Medications sucralfate (CARAFATE) 100 mg/mL suspension Take 10 mL (1 g total) by mouth. 02/04/20 17 Active pantoprazole (PROTONIX) 40 mg EC tablet Take 1 tablet (40 mg total) by mouth every morning on an empty stomach 10/21/19 23 Active ondansetron (ZOFRAN) 4 mg tablet Take 1 tablet (4 mg total) by mouth every 8 (eight) hours if needed. 07/01/20 21 Active simethicone (MYLICON) 125 mg chewable tablet Chew 1 tablet (125 mg total). 12/24/19 22 Active aluminum-magnesium hydroxide-simethic one (MAALOX) 200-200-20 mg/5 mL suspension Take 15 mL by mouth. 12/24/19 22 Active amphetamine-dextro amphetamine XR (ADDERALL XR) 20 mg 24 hr capsule Take 1 capsule (20 mg total) by mouth. 12/06/19 20 Active dicyclomine (BENTYL) 10 mg capsule Take 1 capsule (10 mg total) by mouth. 12/06/19 20 Active naltrexone, bulk, 100 % powder 0.5 mg by Not Applicable route. 12/06/19 20 Active levothyroxine sodium (TIROSINT) 88 mcg capsule Take by mouth. 12/06/19 20 Active multivit-min/pedro pablo us fumarate (MULTI VITAMIN ORAL) Take by mouth. 12/06/19 Active ascorbic acid (VITAMIN C) 250 mg tablet Take 1 tablet (250 mg total) by mouth. 12/06/19 20 Active fentaNYL (DURAGESIC) 12 mcg/hr Place 12 patches on the skin. 08/18/19 20 Active desvenlafaxine 50 mg tablet extended release 24 hr Take 50 mg by mouth. 09/06/19 20 Active pregabalin (LYRICA) 75 mg capsule Take 1 capsule (100 mg total) by mouth 2 (two) times a day 04/30/20 16 Active zolpidem (AMBIEN) 10 mg tablet Take 1 tablet (10 mg total) by mouth every night at bedtime as needed for sleep. 04/09/20 15 Active cholecalciferol (VITAMIN D-3) 50 mcg (2,000 unit) capsule Take 1 capsule (2,000 Units total) by mouth. 09/06/19 20 Active desvenlafaxine succinate (PRISTIQ) 100 mg 24 hr tablet TAKE 1 TABLET BY MOUTH DAILY AFTER BREAKFAST 08/10/19 24 Active hydroquinone (IMANI) 4 % cream APPLY TO HYPERPIGMENTED AREA ON FACE TWICE A DAY 07/29/20 23 Active rimegepant (NURTEC) 75 mg dispersible tablet Take 1 tablet (75 mg total) by mouth 2 (two) times a day as needed for migraine. 11/03/19 24 Active albuterol 2.5 mg /3 mL (0.083 %) nebulizer solution INHALE CONTENTS OF 1 VIAL VIA NEBULIZER EVERY 4-6 HOURS DIRECTED Active albuterol HFA (PROVENTIL HFA;VENTOLIN HFA) 108 (90 Base) MCG/ACT inhaler Inhale 1 puff into the lungs. - Inhalation Active amphetamine-dextro amphetamine (ADDERALL) 20 mg tablet Take 1 tablet (20 mg total) by mouth daily. - Active clonazePAM (KlonoPIN) 0.5 mg tablet Take 1 tablet (0.5 mg total) by mouth 2 (two) times a day as needed for anxiet Active ocrelizumab (OCREVUS IV) Inject into the vein. Active levothyroxine (SYNTHROID, LEVOTHROID) 100 mcg tablet Take 1 tablet (100 mcg total) by mouth daily. Active erenumab-aooe (Aimovig Autoinjector) 70 mg/mL injection Inject 1 mL (70 mg total) under the skin every 30 (thirty) days. INJECT 1 ML (70 MG TOTAL) UNDER THE SKIN ONCE per month 1 mL 5 07/19/20 24 025 Active OLANZapine (ZyPREXA) 10 mg tablet 1 tablet (10 mg total) at bedtime. Active mirtazapine (REMERON KEVIN-TAB) 30 mg disintegrating tablet Dissolve 1 tablet (30 mg total) on top of the tongue at bedtime. 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 We will continue the same dose of levothyroxine 88 mcg. She would like to repeat thyroid function studies again in 6 months and then maybe we can transition to yearly. I have renew her medications for 90 days with 3 refills I requested thyroid function studies to be done before the next visit. Encounters Date Type Department Care Team Description 09/30/2024 8:00 AM EST Office Visit [place] - [address] [place] [address] Jumana Peterson, NOEL MS (multiple sclerosis) ([facility] V24, [facility] V28) (Primary Dx) 09/30/2024 7:52 AM EST - 09/30/2024 11:59 PM EST Hospital Encounter [facility] Outpatient Rehabilititation [facility] [address] [facility] [address] [place] [address] Multiple sclerosis ([facility] V24, [facility] V28) (Primary Dx); Vitamin D deficiency Discharge Disposition: Home or Self Care 08/25/2024 Telephone [facility] [address] [facility] [address] [place] [address] Juamna Peterson PA OCREVUS AUTH RQST; AUTH RECVD from Last 3 Months Immunizations Name Administration Dates Next Due Influenza Quadravalent, MDCK , 0.5ml, preservative free (Flucelvax) 6mo and older 05/19/2017 Influenza Quadrivalent, 0.5m l, preservative free (Fluarix; FluLaval; Fluzone) ages 6mo and older (Afluria) 3yo and older 04/21/2016 Influenza trivalent, 0.5mL, preservative free (Fluarix; FluLaval; Fluzone) ages 6mo and older (Afluria) 3 years and older 05/05/2015 [employer] SARS-CoV-2 COVID-19, mRNA, LNP-S, preservative free 02/11/2021,01/21/2021 Medical History Medical History Date Comments MS (multiple sclerosis) ([facility] V24, [facility] V28) DX:MS (multiple sclerosis) ( [facility]) Adhd DX:ADHD Fibromyalgia DX:Fibromyalgia Overactive thyroid gland DX:Over active thyroid gland Asthma DX:Asthma Graves disease DX:Graves diseas e Family History Medical History Relation Name Comments Lupus Cousin Asthma Father Diabetes Father Diabetes Father's Sister Dementia Maternal Grandmother Diabetes Mother Migraines Mother Crohn's disease Mother's Sister Diabetes Paternal Grandmother Asthma Sister Migraines Sister Multiple sclerosis Sister Relation Name Status Comments Cousin Father Father's Sister Maternal Grandmother Mother Mother's Sister Paternal Grandmother Sister Social History Tobacco Use Types Packs/Day Years Used Date Smoking Tobacco: Former Cigarettes Q uit: 08/03/2015 Smokeless Tobacco: Never Comments Unknown Sex and Gender Information Value Date Recorded Sex Assigned at Not on file Legal Sex Female 9:24 AM EST Gender Identity Not on file Sexual Orientation Not on file Obstetrics History Last Filed Vital Signs Vital Sign Reading Time Taken Comments Blood Pressure 122/78 09/30/2024 11:11 AM EST Pulse 80 09/30/2024 11:11 AM EST Temperature 36.1 ??C (97 ??F) 09/30/2024 11:11 AM EST Respiratory Rate 16 09/30/2024 11:11 AM EST Oxygen Saturation 96% 09/30/2024 11:11 AM EST Inhaled Oxygen Concentration - - Weight 70.8 kg (156 lb) 08/14/2024 10:14 AM EST Height 160 cm (5' 3 ) 10/28/2023 10:40 AM EDT Body Mass Index 27.63 10/28/2023 10:40 AM EDT Plan of Treatment Upcoming Encounters Date Type Department Care Team (Late st Contact Info) Description 03/30/2025 8:00 AM EDT Appointment [facility] Outpatient Rehabilititation [address] [place] [address] Health Maintenance Due Date Last Done Comments Breast Cancer Screening 1979 DTaP,Tdap,and Td Vaccines (1 - Tdap) 1998 Hepatitis B Vaccines (1 of 3 - 19+ 3-dose series) 1998 Cervical Cancer Screening: Pap Smear 2000 Pneumococcal Vaccine: Pediatrics (0 to 5 Years) and At-Risk Patients (6 to 64 Years) (2 of 2 - PCV) 10/14/2014 10/14/2013 Colorectal Cancer Screening: Colonoscopy 07/10/2022 Depression Screening 07/10/2022 HIV Screening 07/10/2022 Social Influencers of Health Screening 07/10/2022 COVID-19 Vaccine ( season) 2024 02/11/2021, 01/21/2021 Influenza Vaccine (Season Ended) 2025 05/19/2017, 04/21/2016, 05/05/2015, Additional history exists Hepatitis C Screening Completed 06/01/2015, 015 HIB Vaccines Aged Out No longer eligi ble based on patient's age to complete this topic HPV Vaccines Aged Out No longer eligi ble based on patient's age to complete this topic Hepatitis A Vaccines Aged Out No long er eligible based on patient's age to complete this topic IPV Vaccines Aged Out No longer eligi ble based on patient's age to complete this topic MMR Vaccines Aged Out No longer eligi ble based on patient's age to complete this topic Meningococcal ACWY Vaccine Aged Out N o longer eligible based on patient's age to complete this topic Meningococcal B Vaccine Aged Out No l onger eligible based on patient's age to complete this topic RSV Immunization Patients Under 20 months Aged Out No longer eligible based on patient's age to complete this topic Varicella Vaccines Aged Out No longer eligible based on patient's age to complete this topic Procedures Procedure Name Priority Date/Time Associated Diagnosis Comments CBC WITH AUTO DIFFERENTIAL Routine 09/30/2024 8:18 AM EST Multiple sclerosis ([facility] V24, [facility] V28) CBC AND DIFFERENTIAL Routine 09/30/2024 8:18 AM EST Multiple sclerosis ([facility] V24, [facility] V28) HEPATITIS C SCREENING Routine 06/01/2015 from Last 3 Months or Most Recently Relevant to Health Maintenance Results * (ABNORMAL) CBC auto differential (09/30/2024 8:18 AM EST) WBC 7.2 4.8 - 10.8 K/mcL LAB HEMETOLOGY METHOD 09/30/2024 9:06 AM [facility] RBC 4.30 3.80 - 4.80 M/mcL LAB HEMETOLOGY METHOD 09/30/2024 9:06 AM [facility] Hemoglobin 13.4 11.5 - 16.0 g/dL LAB HEMETOLOGY METHOD 09/30/2024 9:06 AM [facility] Hematocrit 39.2 35.0 - 47.0 % LAB HEMETOLOGY METHOD 09/30/2024 9:06 AM [facility] MCV 91.6 79.0 - 98.0 FL LAB HEMETOLOGY METHOD 09/30/2024 9:06 AM [facility] MCH 31.3 27.0 - 32.0 pcg LAB HEMETOLOGY METHOD 09/30/2024 9:06 AM [facility] MCHC 34.2 32.0 - 37.0 g/dL LAB HEMETOLOGY METHOD 09/30/2024 9:06 AM [facility] RDW 14.6 11.0 - 15.0 % LAB HEMETOLOGY METHOD 09/30/2024 9:06 AM [facility] Platelets 308 130 - 400 K/mcL LAB HEMETOLOGY METHOD 09/30/2024 9:06 AM [facility] MPV 8.9 7.0 - 11.0 FL LAB HEMETOLOGY METHOD 09/30/2024 9:06 AM [facility] NRBC 0.0 <1.0 % LAB HEMETOLOGY METHOD 09/30/2024 9:06 AM [facility] NRBC Absolute 0.00 <0.10 K/mcL LAB HEMETOLOGY METHOD 09/30/2024 9:06 AM [facility] Neutrophils Relative 73.4 % LAB HEMETOLOGY METHOD 09/30/2024 9:06 AM [facility] Lymphocytes Relative 15.5 % LAB HEMETOLOGY METHOD 09/30/2024 9:06 AM [facility] Monocytes Relative 7.7 % LAB HEMETOLOGY METHOD 09/30/2024 9:06 AM [facility] Eosinophils Relative 2.2 % LAB HEMETOLOGY METHOD 09/30/2024 9:06 AM [facility] Basophils Relative 0.6 % LAB HEMETOLOGY METHOD 09/30/2024 9:06 AM [facility] Immature Granulocytes Relative 0.6 % LAB HEMETOLOGY METHOD 09/30/2024 9:06 AM [facility] Neutrophils Absolute 5.31 1.50 - 7.00 K/mcL LAB HEMETOLOGY METHOD 09/30/2024 9:06 AM EST [facility] Lymphocytes Absolute 1.12 1.00 - 5.00 K/mcL LAB HEMETOLOGY METHOD 09/30/2024 9:06 AM EST [facility] Monocytes Absolute 0.56 0.20 - 1.00 K/mcL LAB HEMETOLOGY METHOD 09/30/2024 9:06 AM EST [facility] Eosinophils Absolute 0.16 0.00 - 0.50 K/mcL LAB HEMETOLOGY METHOD 09/30/2024 9:06 AM EST [facility] Basophils Absolute 0.04 0.00 - 0.20 K/mcL LAB HEMETOLOGY METHOD 09/30/2024 9:06 AM [facility] Immature Granulocytes Absolute 0.04(H) 0.00 - 0.03 K/mcL LAB HEMETOLOGY METHOD 09/30/2024 9:06 AM EST [facility] Blood Venous blood specimen / Unknown Venipuncture / Unknown 09/30/2024 8:18 AM EST 09/30/2024 8:19 AM EST Jumana COHEN LAB BLOOD ORDERABLES Final R esult [facility] [address] [place] [address], * Hepatitis C Screening (06/01/2015) Hepatitis C Screening Abstracted us Historical Provider HEALTH MAINTENANCE Final Result from Last 3 Months or Most Recently Relevant to Health Maintenance Insurance [facility] MEDICAID Advance Directives Documents on File Type Date Recorded Patient Inspector Precision Assembly Expl anation Health Care Decision (hx) 05/04/2015 AD [place] DIRECTIVE Health Care Decision (hx) 05/04/2015 AD [place]ORD DIRECTIVE Health Care Decision (hx) 05/04/2015 AD [place] DIRECTIVE Health Care Decision (hx) 05/04/2015 AD SAN[place]ORD DIRECTIVE Health Care Decision (hx) 05/04/2015 AD SANFORD DIRECTIVE Health Care Decision (hx) 05/04/2015 AD SANFORD DIRECTIVE Health Care Decision (hx) 05/04/2015 AD SANFORD DIRECTIVE Health Care Decision (hx) 05/04/2015 AD SANFORD DIRECTIVE Health Care Decision (hx) 05/04/2015 AD SANFORD DIRECTIVE Health Care Decision (hx) 05/04/2015 AD SANFORD DIRECTIVE Health Care Decision (hx) 05/04/2015 AD SANFORD DIRECTIVE Health Care Decision (hx) 05/04/2015 AD SAN[place] DIRECTIVE Health Care Decision (hx) 05/04/2015 AD SANFORD DIRECTIVE Health Care Decision (hx) 05/04/2015 AD SANFORD DIRECTIVE Health Care Decision (hx) 05/04/2015 AD [place] DIRECTIVE Health Care Decision (hx) 05/04/2015 AD SANFORD DIRECTIVE Health Care Decision (hx) 05/04/2015 AD SANFORD DIRECTIVE Health Care Decision (hx) 05/04/2015 AD SANFORD DIRECTIVE Health Care Decision (hx) 05/04/2015 AD SANFORD DIRECTIVE Health Care Decision (hx) 05/04/2015 AD SANFORD DIRECTIVE Health Care Decision (hx) 05/04/2015 AD SANFORD DIRECTIVE Care Teams Plaster Pattern Caster Relationship Specialty Start Date End Date Mickey Oscar MD [address] [place] [address] [address] [place], [place] PCP - General 12/25/22
--- OUTSIDE RECORDS SUMMARY | 2024-11-16 17:23 | XMS_ITS ---
Author Name [facility] Organization Unknown History of Medication Use Medication Directions Dispensed Refills Start Date End Date Status Melatonin 5 MG TABS Take 1 tablet by mouth every night at bedtime. 1 active Vitamin D3 50 MCG (2000 UT) capsule TAKE 1 CAPSULE BY MOUTH EVERY DAY 4 active erenumab-aooe (AIMOVIG) 70 MG/ML SOAJ Inject under the skin once. active hydroquinone 4 % cream APPLY TO HYPERPIGMENTED AREA ON FACE TWICE A DAY 3 active ergocalciferol (VITAMIN D2) capsule 42974 units Take 1 capsule (50,000 Units total) by mouth once a week. 3 active amphetamine-dextroam phetamine (ADDERALL) 20 MG tablet Take 1 tablet (20 mg total) by mouth daily. active albuterol 108 (90 Base) MCG/ACT inhaler Inhale 1 puff into the lungs. 5 active Levothyroxine Sodium 88 MCG CAPS Take by mouth. 0 active diphenhydrAMINE (BENADRYL) injection 50 mg 50 mg, Intravenous, Once, On Thu03/30/24 at 0830, For 1 doseGive 30 minutes prior to ocrelizumab. IV push over 2-3 minutes.??See PO diphenhydramine order. Please give PO or IV.??Common Side Effects: Drowsiness, stomach upset, confusion, dry mouth.??Administer undiluted. Maximum rate 25 mg/min. 4 03/30/20 24 completed zolpidem (AMBIEN) 10 MG tablet Take 1 tablet (10 mg total) by mouth every night at bedtime as needed for sleep. active pantoprazole (PROTONIX) 40 MG tablet Take 1 tablet (40 mg total) by mouth every morning on an empty stomach. active ocrelizumab (OCREVUS) 600 mg in sodium chloride (NS) 0.9 % 500 mL IVPB 600 mg, Intravenous, Once, On Thu03/30/24 at 0830, For 1 doseMust use in-line 0.22 micron filter. ??- Infusion Rate for first full 600 mg dose or reaction with previous infusion: Start at 40 mL/hr. Increase by 40 mL/hr every 30 minutes. Maximum rate: 200 mL/hr. Duration: 3.5 hours or longer.??- Infus 4 03/30/20 24 completed Problems Problem Status Onset Date Problem Type Date of Resoluti on Source Graves disease active 2021-01-25 ProblemAct CTT HNEMG Fibromyalgia active 2021-01-25 ProblemAct CTTHN EMG Multiple sclerosis active 2021-01-28 ProblemAct CTTHNEMG
--- OUTSIDE RECORDS SUMMARY | 2024-11-16 17:23 | XMS_ITS | Patient Health Record ---
Author Organization [facility] Address [address] [address] Care Team Providers Care Outbound Sales Executive Name Role Phone Mickey Oscar Primary Care Provider LANRE Styles Unavailable [phone] Allergies Allergen (clinical drug ingredient) Drug/Non Drug Allergy documented on EMR Reaction Allergy Type Onset Date Status teriflunomide Aubagio (uncoded) anaphylaxis Allergy Active Blueberries Blueberries (uncoded) facial Swelling Allergy Active clindamycin Clindamycin (uncoded) rash Allergy Active Iodine (uncoded) anaphylaxis Allergy A ctive Lactose (uncoded) diarrhea Allergy Ac tive Peanut (uncoded) anaphylaxis Allergy A ctive Substance with penicillin structure and antibacterial mechanism of action (substance) Penicillins (uncoded) rash Allergy Active Raspberries (uncoded) facial Swelling Allergy Active Shellfish (FN) Shellfish (uncoded) anaphylaxis Allergy Active strawberry allergenic extract Strawberries (uncoded) facial Swelling Allergy Active Substance with sulfonamide structure and antibacterial mechanism of action (substance) Sulfa (uncoded) diarrhea Allergy Active trazodone Trazadone (uncoded) Hives and dyspnea Allergy Active natalizumab Tysabri (uncoded) hives and dyspnea Allergy Active Reason For Referral No Information Medications Medication SIG (Take, Route, Frequency, Duration) Notes Start Date End Date Status Amitriptyline HCl 10 MG 2 tablets Orally Once a day for 30 days Active busPIRone HCl 30 MG 1 tablet Orally Twice a day for 30 Active Levothyroxine Sodium 100 MCG 1 tablet on an empty stomach in the morning Orally Once a day Active busPIRone HCl 30 1 tablet Orally Twice a day for 30 Active FLUoxetine HCl 10 1 capsule Orally Once a day for 30 Active Protonix 40 MG 1 tablet Orally Once a day Active Vitamin D 2000 UNIT 1 tablet Orally Once a day Active FLUoxetine HCl 10 MG 1 capsule Orally Once a day for 30 Active fentaNYL 25 MCG/HR 1 patch to skin Transdermal Active Naratriptan HCl 1 mg 1 tablet as needed one time Orally Once a day at the first sign of migraine, can repeat x 1 in 4hrs if no relief for 30 Active Ondansetron 4 MG 1 tablet on the tongue and allow to dissolve as needed Orally as needed with naratriptan for migraine up to 2 times per day for 30 days Active KlonoPIN 0.5 MG 1 tablet up to twice a day PRN anxiety Orally up to twice a day for 30 Active traZODone HCl 100 MG TAKE 1 TABLET BY MOUTH EVERY NIGHT AT BEDTIME for 90 Active oxyCODONE HCl 10 MG 1 tablet Orally as needed- o nce to twice per day Active Lyrica 75 MG 1 capsule Orally Twice a day Active KlonoPIN 0.5 1 tablet up to twice a day PRN anxiety Orally up to twice a day for 30 Active Adderall XR 25 MG 1 capsule in the morning- do not fill before 09/08/18 Orally Once a day for 30 days 11/09/2018 Active ProAir HFA 108 (90 Base) MCG/ACT 2 puffs as needed Inhalation every 6 hrs Active Zolpidem Tartrate 10 MG 1 tablet at bedt aaron as needed Orally Once a day as needed for sleep 3x per week approx Active traZODone HCl 100 1 TABLET AT BEDTIME ONCE A DAY ORALLY 30 DAY(S) for 30 Active Amitriptyline HCl 10 2 tablets Orally Once a day for 30 Active Social History Tobacco Use: Social History Observation Description Date Details (start date - stop date) Current Smoker NA - NA Tobacco Use/Smoking Question Answer Notes Are you a current smoker How often do you smoke cigarettes? some days, bu t not every day Section Notes: Alcohol use:none Illicit use:none Occupation: disabled lives in [place] with , and her two children Alcohol use:none Illicit use:none Occupation: disabled lives in [place] with , and her two children Alcohol use:none Illicit use:none Occupation: disabled lives in [place] with , and her two children Alcohol use:none Illicit use:none Occupation: disabled lives in [place] with , and her two children Alcohol use:none Illicit use:none Occupation: disabled lives in [place] with , and her two children Alcohol use:none Illicit use:none Occupation: disabled lives in [place] with , and her two children Problems Problem Type SNOMED Code ICD Code Onset Dates Problem Status W/U Status Risk Notes Problem 103439013 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) Active confirmed Problem 64033019 Generalized anxi ety disorder (F41.1) Active confirmed Problem 25794488 Multiple scleros is (G35) Active confirmed Problem 357437287 Migraine without aura and without status migrainosus, not intractable (G43.009) Active confirmed Problem Multiple sclerosis (42843535) MS (multiple sclerosis) (G35) Active confirmed Problem 456380446473415 Cognitive attent ion deficit (R41.840) Active confirmed Problem 650778685 Psychophysiologi christ insomnia (F51.04) Active confirmed Plan Of Treatment No Information Insurance Providers Payer Name Payer Address Payer Phone Subscriber Number Group Number Insured Name Patient Relationship to Insured Coverage Start Date Coverage End Date MEDICARE [address] [place], [place] [id number] BETH PRESSLEY Self - patient is the insured [facility] [address] [place] [id number] BETH PRESSLEY Self - patient is the insured Medical (General) History Medical History History ICD Code Fibromyalgia Migraine MS (multiple sclerosis) anxiety, ADHD- previously se gr a psychiatrist in [place] but not currently
--- OUTSIDE RECORDS SUMMARY | 2024-11-16 17:23 | XMS_ITS | Clinical Summary ---
Author Organization [facility] Address [address] [place] [address] Care Team Providers Care Cellophane Bag Machine Operator Name Role Phone Mickey Oscar MD Primary Care Provider [phone] Allergies Active Allergy Reactions Criticality Noted Date Comments Fluconazole Rash Low 05/20/2023 Penicillins Hives 05/09/2022 Medications Medication Sig Dispensed Refills Start Date End Date Status Ocrelizumab (OCREVUS IV) Inject into the vein. 0 Active clonazePAM (KlonoPIN) 0.5 MG tablet Take 1 tablet (0.5 mg total) by mouth 2 (two) times a day as needed for anxiety. 0 Active amphetamine-dextr oamphetamine (ADDERALL) 20 MG tablet Take 1 tablet (20 mg total) by mouth daily. 0 Active pregabalin (LYRICA) capsule 100 mg Take 1 capsule (100 mg total) by mouth 2 (two) times a day. 0 Active Melatonin 5 MG TABS Take 1 tablet by mouth every night at bedtime. 0 01/01/2021 Active zolpidem (AMBIEN) 10 MG tablet Take 1 tablet (10 mg total) by mouth every night at bedtime as needed for sleep. 0 Active pantoprazole (PROTONIX) 40 MG tablet Take 1 tablet (40 mg total) by mouth every morning on an empty stomach. 0 Active albuterol 108 (90 Base) MCG/ACT inhaler Inhale 1 puff into the lungs. 0 04/03/2015 Active albuterol (PROVENTIL) (2.5 MG/3ML) 0.083% nebulizer solution INHALE CONTENTS OF 1 VIAL VIA NEBULIZER EVERY 4-6 HOURS DIRECTED 0 05/03/2022 Active ascorbic acid (VITAMIN C) 250 MG tablet Take 1 tablet (250 mg total) by mouth. 0 12/06/2019 Active desvenlafaxine (PRISTIQ) 100 MG 24 hr tablet TAKE 1 TABLET BY MOUTH DAILY AFTER BREAKFAST 0 08/10/2023 Active hydroquinone 4 % cream APPLY TO HYPERPIGMENTED AREA ON FACE TWICE A DAY 0 07/29/2023 Active Synthroid 100 MCG tablet Take 1 tablet (100 mcg total) by mouth daily. 0 09/29/2023 Active rimegepant (NURTEC ODT) 75 MG TBDP ODT Take 1 tablet (75 mg total) by mouth 2 (two) times a day as needed for migraine. 15 tablet 3 11/03/2023 Active erenumab-aooe (Aimovig) 70 MG/ML SOAJ INJECT 1 ML (70 MG TOTAL) UNDER THE SKIN ONCE FOR 1 DOSE. 1 mL 3 03/30/2024 Active Cholecalciferol (Vitamin D3) 50 MCG (2000 UT) capsule TAKE 1 CAPSULE BY MOUTH EVERY DAY 90 capsule 1 05/30/2024 Active Active Problems Problem Noted Date Diagnosed Date Multiple sclerosis 01/28/2021 Fibromyalgia 01/25/2021 Graves disease 01/25/2021 Family History Medical History Relation Name Comments Lupus Cousin Asthma Father Diabetes Father Crohn's disease Maternal Aunt Dementia Maternal Grandmother Diabetes Mother Migraines Mother Diabetes Paternal Aunt Diabetes Paternal Grandmother Asthma Sister Migraines Sister Multiple sclerosis Sister Relation Name Status Comments Cousin Father Maternal Aunt Maternal Grandmother Mother Paternal Aunt Paternal Grandmother Sister Social History Tobacco Use Types Packs/Day Years Used Date Smoking Tobacco: Former Cigarettes Q uit: 2016 Smokeless Tobacco: Never Tobacco Cessation:Counseling Given: Not Answered Sex and Gender Information Value Date Recorded Sex Assigned at Female 11/14/2020 1:06 PM EDT Gender Identity Not on file Sexual Orientation Not on file Job Start Date Occupation Industry Not on file Not on file Not on file Last Filed Vital Signs Vital Sign Reading Time Taken Comments Blood Pressure 94/56 03/30/2024 11:29 AM EDT Pulse 74 03/30/2024 11:29 AM EDT Temperature 36.2 ??C (97.1 ??F) 10/28/2023 10:40 AM E DT Respiratory Rate 18 03/30/2024 11:29 AM EDT Oxygen Saturation 95% 03/30/2024 11:29 AM EDT Inhaled Oxygen Concentration - - Weight 64.1 kg (141 lb 6.4 oz) 10/28/2023 10:40 AM EDT Height 160 cm (5' 3 ) 10/28/2023 10:40 AM EDT Body Mass Index 25.05 10/28/2023 10:40 AM EDT Plan of Treatment Health Maintenance Due Date Last Done Comments Hepatitis B Vaccines (1 of 3 - 3-dose series) 1979 Depression Screening 1991 BMI Counseling 1997 Preventative Health Evaluation 1997 DTap / Tdap / Td (1 - Tdap) 1998 Cervical Cancer Screening (Pap Smear) 2000 COVID-19 Vaccine (3 - 2023-2 5 season) 2024 02/11/2021, 01/21/2021 Influenza Vaccine (#1) 2024 7, 04/21/2016, 10/14/2013 Colon Cancer Screening (Colonoscopy) 2024 Pneumococcal Vaccine Aged Out 10/14/2013 No long er eligible based on patient's age to complete this topic Hepatitis C Screening Completed 06/01/2015 RSV Ped < 20 months Aged Out No longe r eligible based on patient's age to complete this topic Care Teams Cellophane Bag Machine Operator Relationship Specialty Start Date End Date Mickey Oscar MD [address] [place] [address] [address] [place] [address] PCP - General Geriatric Medicine 12/25/22
== END 2024-11-16 15:36 | disposition home or self-care (01) ==
LOC: HO.HWS 14:39
PROVIDERS: PCP Internal Medicine; Visit Provider Obstetrics & Gynecology
DX: Z01.419 Encounter for gynecological examination (general) (routine) without abnormal findings (principal)
CPT/HCPCS: 99396; 99459

== ENCOUNTER 2024-11-16 15:39 | Outpatient (REF) | payer OTHER, SELFPAY ==
--- OUTSIDE RECORDS SUMMARY | 2024-11-16 18:05 | XMS_ITS | Continuity of Care Document ---
Author Organization [facility] Address [address] [place] [phone] Phone Care Team Providers Care Finishing Operator Name Role Phone Starla Garay M.D., [...] Mod-hi 60 [facility], [address] [place] [address] [employer] [place], [place], [id number], tel:[phone] [facility] Astigmatism NosPain In Or Around Eye Oct-3 1-200 8 Starla Hill. [address] [place] [address], [id number], [place]. tel:[phone] Specialist : Santy Rausch, [address], [place], [address]. tel:[phone] erring Provider: [facility], [address], [place], [address] . tel:[phone] Family History Family Member Type Diagnosis Age At Onset Mother Problem (finding) diabetes melli tus in first degree relative Father Problem (finding) glaucoma Father Problem (finding) cataract Father Problem (finding) HBP Father Problem (finding) diabetes melli tus in first degree relative Payers Payer name Insurance type Covered libertarian ID Authoriza tion(s) [facility] [id number] Social History Type Description Quantity Date Captured [...]
[2024-11-17 09:34] LABS: Bacterial Vaginosis PCR NEGATIVE (Negative); Candida Group PCR NOT DETECTED (Not Detect); Candida glab krusei PCR NOT DETECTED (Not Detect); Trichomonas vaginalis PCR NOT DETECTED (Not Detect)
[2024-11-17 10:06] LABS: CT PCR NOT DETECTED (Not Detect.); NG PCR NOT DETECTED (Not Detect.)
== END 2024-11-16 15:40 | disposition home or self-care (01) ==
LOC: HO.LNP 15:39
PROVIDERS: Visit Provider Obstetrics & Gynecology
DX: N76.0 Acute vaginitis (principal)
CPT/HCPCS: 81515; 87491; 87591; 99396; 99459